=== PATIENT | female | born 1945 | race Two or more races ===

== ENCOUNTER 2018-04-13 10:15 | Outpatient (CLI) | payer OTHER | END 2018-04-13 17:00 | disposition home or self-care (01) | LOC: TOM 10:15 | DX: M51.36 Other intervertebral disc degeneration, lumbar region (principal); I10 Essential (primary) hypertension; J45.909 Unspecified asthma, uncomplicated ==

== ENCOUNTER 2019-03-19 11:50 | Emergency (ER) | payer OTHER ==
[~2019-03-19] VITALS: Ht 160 cm; Wt 63.0 kg
== END 2019-03-19 17:27 | disposition home or self-care (01) ==
LOC: ER 11:50
DX: S51.021A Laceration with foreign body of right elbow, initial encounter (principal); W54.0XXA Bitten by dog, initial encounter; Y93.89 Activity, other specified; Y92.89 Other specified places as the place of occurrence of the external cause; Y99.8 Other external cause status

== ENCOUNTER 2019-03-27 17:10 | Emergency (ER) | payer OTHER ==
[~2019-03-27] VITALS: Ht 160 cm; Wt 63.5 kg
[2019-03-27] MEDS ORDERED: BACTRIM DS TAB1 EACH PO (18:41)
== END 2019-03-27 18:58 | disposition home or self-care (01) ==
LOC: ER 17:10
DX: T79.8XXA Other early complications of trauma, initial encounter (principal); T81.49XA Infection following a procedure, other surgical site, initial encounter; L08.89 Other specified local infections of the skin and subcutaneous tissue; Z48.02 Encounter for removal of sutures

== ENCOUNTER 2020-02-26 13:51 | Outpatient (CLI) | payer OTHER ==
[~2020-02-26 13:51] MED LIST: BACTRIM DS TAB1 EACH PO
== END 2020-02-26 15:00 | disposition home or self-care (01) ==
LOC: PPH VACUNA 13:51
PROVIDERS: ATTEND Emergency Medicine Pediatric Emergency Medicine
DX: Z23 Encounter for immunization (principal)

== ENCOUNTER 2020-03-18 11:49 | Outpatient (CLI) | payer OTHER | END 2020-03-18 15:00 | disposition home or self-care (01) | LOC: PPH VACUNA 11:49 | PROVIDERS: ATTEND Emergency Medicine Pediatric Emergency Medicine | DX: Z23 Encounter for immunization (principal) ==

== ENCOUNTER 2021-02-04 07:44 | Outpatient (CLI) | payer OTHER | END 2021-02-04 15:00 | disposition home or self-care (01) | LOC: LAB 07:44 | PROVIDERS: ATTEND Obstetrics & Gynecology | DX: Z20.828 Contact with and (suspected) exposure to other viral communicable diseases (principal) ==

== ENCOUNTER 2022-06-24 08:18 | Outpatient (CLI) | payer OTHER | END 2022-06-24 08:26 | disposition home or self-care (01) | LOC: RAD 08:18 | DX: R05.8 Other specified cough (principal) ==

== ENCOUNTER 2022-12-10 13:04 | Outpatient (CLI) | payer OTHER | END 2022-12-10 13:14 | disposition home or self-care (01) | LOC: MAMO-SONO 13:04 | PROVIDERS: ATTEND Obstetrics & Gynecology | DX: N60.11 Diffuse cystic mastopathy of right breast (principal); N60.12 Diffuse cystic mastopathy of left breast; Z12.31 Encounter for screening mammogram for malignant neoplasm of breast ==

== ENCOUNTER → 2022-12-10 | Outpatient (CLI) | payer OTHER | END | disposition home or self-care (01) | LOC: NUCLEAR 14:14 | PROVIDERS: ATTEND Obstetrics & Gynecology | DX: M81.0 Age-related osteoporosis without current pathological fracture (principal) ==

== ENCOUNTER 2023-11-15 09:42 | Outpatient (CLI) | payer OTHER | END 2023-11-15 09:48 | disposition home or self-care (01) | LOC: MAMO-SONO 09:42 | PROVIDERS: ATTEND Obstetrics & Gynecology | DX: N60.11 Diffuse cystic mastopathy of right breast (principal); N60.12 Diffuse cystic mastopathy of left breast; Z12.31 Encounter for screening mammogram for malignant neoplasm of breast ==

== ENCOUNTER 2023-11-15 11:09 | Outpatient (CLI) | payer OTHER ==
[2023-11-15 12:04] LABS: URINE APPEARANCE Clear; URINE BILIRRUBIN Negative (NEGATIVE); URINE BLOOD Negative; URINE COLOR Yellow; URINE GLUCOSE Negative (NEGATIVE); URINE KETONE Trace (NEGATIVE); URINE LEUKOCYTE Trace; URINE NITRATE Negative; URINE PROTEIN Negative (NEGATIVE); URINE UROBILINOGEN 0.2 E.U./dl
[2023-11-15 12:10] LABS: URINE EPITHELIAL CELLS 65.7 uL (0.0-38.8); URINE RBC 10.3 uL (0.0-20.8); URINE WBC 55.6 uL (0.0-23.2)
[2023-11-15 12:36] LABS: HEMOGLOBIN 13.8 g/dL (12.0-15.00); MEAN CELL VOLUME 90.7 fL (80.00-100.00); MEAN CORPUSCULAR HEMOGLOBIN 30.6 pg (27.00-32.0); MEAN CORPUSCULAR HGB CONC 33.7 g/dl (32.0-36.0); PLATELET COUNT 265 K/uL (150-450); RED BLOOD COUNT 4.52 M/uL (4.00-6.00); RED CELL DISTRIBUTION WIDTH 14.7 % (11.5-14.5)
[2023-11-15 12:49] LABS: ALBUMIN 3.6 gm/dL (3.4-5.0); BILIRUBIN TOTAL 0.98 mg/dL (0.3-1.2); CALCIUM 8.8 mg/dL (8.5-10.1); CHOL HDL RATIO 5.2 (0-5.0); CREATININE SERUM 0.91 mg/dL (0.55-1.02); GFR 60.1; GLOBULINA 3.6 G/DL (2.4-3.5); POTASSIUM 3.98 mEq/L (3.5-5.1); TOTAL PROTEIN 7.2 gm/dL (6.4-8.2)
[2023-11-15 13:09] LABS: PARTIAL THROMBOPLASTIN TIME 30.6 SECONDS (22.0-34.0); PROTHROMBIN TIME 10.9 SECONDS (9.0-11.5)
[2023-11-15 21:13] LABS: T4 FREE 1.12 NG/ML (0.76-1.46); TSH 0.95 uIU/mL (0.358-3.74)
== END 2023-11-15 11:19 | disposition home or self-care (01) ==
LOC: LAB 11:09
PROVIDERS: ATTEND Obstetrics & Gynecology
DX: D64.9 Anemia, unspecified (principal); Z12.11 Encounter for screening for malignant neoplasm of colon; E03.8 Other specified hypothyroidism; N95.1 Menopausal and female climacteric states; I10 Essential (primary) hypertension; C51.9 Malignant neoplasm of vulva, unspecified; N30.00 Acute cystitis without hematuria; E83.51 Hypocalcemia; A64 Unspecified sexually transmitted disease; N39.0 Urinary tract infection, site not specified; R97.8 Other abnormal tumor markers; R79.89 Other specified abnormal findings of blood chemistry; E55.9 Vitamin D deficiency, unspecified; A60.9 Anogenital herpesviral infection, unspecified